=== PATIENT | female | born 1985 | race Caucasian/White ===

== ENCOUNTER 2024-04-11 16:36 | Emergency (ER) | payer BC, SELFPAY ==
[2024-04-11 16:55] VITALS: BP 138/89; PULSE 96; RESP 18; TEMP 37.3; O2SAT 99; BMI 29.9
--- NOTE | 2024-04-11 20:50 | ED_ITS ---
HPI - General Adult General Time Seen by Provider: 20:28 Date Seen: 04/11/24 Chief complaint: Headache/Migraine Stated complaint: Migraine 1 week, L eye infection Time Seen by Provider: 04/11/24 20:28 Source: patient and RN notes reviewed Mode of arrival: ambulatory Limitations: no limitations History of Present Illness HPI narrative: Patient is a 38-year-old female coming in with severe left-sided headache and lesions in her hair and forhead, swelling of her upper eyelid. She feels she has a left upper eyelid infection. She went to the eye doctor on Friday, was given steroid drops. She sent a picture to the eye doctor today or yesterday once the lesions developed, the eye doctor told her that it perhaps may be shingles. She went to urgent care on , ended up having CT imaging, was given antibiotics. She states that she did not have any the lesions. She started breaking out in painful lesions in her scalp and on her left forehead on Friday, yesterday. She believes she has a low-grade fever, her lymph nodes on the side of her face are inflamed. She was given antibiotics at urgent care. She has tried [id number] pain medicines, nothing is helping the pain. She has a severe headache on this left side of her head. She has tolerated oxycodone with her tonsillectomy before. Related Data Home Medications ?Medication ?Instructions ?Recorded ?Confirmed amlodipine 10 mg tablet 10 mg PO DAILY 02/19/23 02/19/23 venlafaxine 150 mg 150 mg PO DAILY 02/19/23 02/19/23 capsule,extended release 24 hr cefdinir 300 mg capsule 300 mg PO BID 04/11/24 04/11/24 lorazepam 0.5 mg tablet 0.5 mg PO DAILY PRN anxiety 04/11/24 04/11/24 metoprolol succinate 25 mg 25 mg PO DAILY 04/11/24 04/11/24 tablet,extended release 24 hr norethindrone 1.5 mg-ethinyl 1 tab PO DAILY 04/11/24 04/11/24 estradiol 30 mcg(21)/iron 75 mg(7) tablet (Mariann Fe 1.5/30 (28)) prednisolone acetate 1 % eye drp ophthalmic (eye) 04/11/24 drops,suspension Previous Rx's ?Medication ?Instructions ?Recorded gabapentin 100 mg capsule 100 mg PO QHS #10 caps 04/11/24 valacyclovir 1 gram tablet 1,000 mg PO TID #20 tabs 04/11/24 Allergies Allergy/AdvReac Type Severity Reaction Status Date / Time amoxicillin (From Augmentin) Allergy Verified 02/19/23 11:08 clavulanic acid (From Allergy Verified 02/19/23 11:08 Augmentin) Review of Systems Narrative: As per HPI. PFSH PFSH Surgical History Hx of tonsillectomy ?Z90.89 - Acquired absence of other organs (ICD-10) Exam Const: Vital Signs, click to edit/add: Vital Signs - 24 hr 04/11/24 16:55 Temperature 99.1 F Pulse Rate [Right Pulse Oximeter] 96 Respiratory Rate 18 Blood Pressure [Ri ght Upper Arm] 138/89 Pulse Oximetry 99 Oxygen Delivery Me thod Room Air This 38-year-old female is alert, interactive, no apparent distress. She has erythematous crusted lesions on her left forehead going up into her scalp, left upper eyelid is erythematous swollen. Pupils are equal round reactive, sclera clear come extra muscles intact. TMs canals normal. No lesions below the forehead. She does have some adenopathy along the left jawline by the ear. She is breathing easy on room air, CV regular rate and rhythm, no murmur. Documenting provider has reviewed patient's vital signs: yes Course Course ED Course: Discussed with patient that she definitely has shingles. We discussed the significant pain with this. She needs to be on Valtrex. Will give her a dose of 1000 mg Valtrex tonight as we do not have this in [facility]. She will be given 30 mg IM Toradol to attempt for some pain management, she did drive herself. Did review with her that I will certainly give her some oxycodone from [facility], will provide 8 tablets of 5 mg, 1 every 6 hours as needed. Will give her a prescription for gabapentin at bedtime, will have to get this filled tomorrow. We discussed the importance of following up with the eye doctor to ensure no ophthalmic involvement. She did have a prodrome all headache for about a week prior to her symptoms. We discussed that that can be very typical of shingles. Vital Signs Vital signs: Initial Vital Signs Temperature 99.1 F 04/11/24 16:55 Temperature Source Temporal Artery Scan 04/11/24 16:55 Pulse Rate 96 04/11/24 16:55 Pulse Rhythm Regular 04/11/24 16:55 Respiratory Rate 18 04/11/24 16:55 Blood Pressure 138/89 04/11/24 16:55 Blood Pressure Mean 105 04/11/24 16:55 Blood Pressure Position Sitting 04/11/24 16:55 Pulse Oximetry 99 04/11/24 16:55 Oxygen Delivery Method Room Air 04/11/24 16:55 Vital Signs Temperature 99.1 F 04/11/24 16:55 Pulse Rate 96 04/11/24 16:55 Respiratory Rate 18 04/11/24 16:55 Blood Pressure 138/89 04/11/24 16:55 Pulse Oximetry 99 04/11/24 16:55 Oxygen Delivery Method Room Air 04/11/24 16:55 Temperature 99.1 F 04/11/24 16:55 Pulse Rate 96 04/11/24 16:55 Respiratory Rate 18 04/11/24 16:55 Blood Pressure 138/89 04/11/24 16:55 Pulse Oximetry 99 04/11/24 16:55 Oxygen Delivery Method Room Air 04/11/24 16:55 Discharge Plan Discharge Clinical Impression: Shingles Qualifiers: Herpes zoster complications: without complications Qualified Code(s): B02.9 - Zoster without complications Patient Disposition: Home, Self-Care Condition: Stable Instructions: Shingles (ED) Additional Instructions: You can stop the antibiotic prescribed from urgent care as it is not going to help. Continue with the Valtrex a 1000 mg 3 times a day to complete 1 week. You should try to take your next dose as soon as possible in the morning. Have written for oxycodone, follow-up prescription instructions. Have provided a prescription of gabapentin 100 mg to be taken at bedtime to help with pain, can be sedating. Can continue with Tylenol and ibuprofen per bottle directions. You need to contact your eye doctor to be re-evaluated to ensure no eye involvement. Otherwise, schedule a follow-up appointment in clinic within the next week. You may need further pain management and do think it is important that you get this appointment. Activity Level: Activity as Tolerated Prescriptions: New valacyclovir 1 gram tablet 1,000 mg PO TID Qty: 20 0RF gabapentin 100 mg capsule 100 mg PO QHS Qty: 10 0RF No Action amlodipine 10 mg tablet 10 mg PO DAILY venlafaxine 150 mg capsule,extended release 24hr 150 mg PO DAILY norethindrone-e.estradiol-iron [Mariann Fe 1.5/30 (28)] 1.5 mg-30 mcg (21)/75 mg (7) tablet 1 tab PO DAILY prednisolone acetate 1 % drops,suspension ophthalmic (eye) lorazepam 0.5 mg tablet 0.5 mg PO DAILY PRN (Reason: anxiety) metoprolol succinate 25 mg tablet extended release 24 hr 25 mg PO DAILY cefdinir 300 mg capsule 300 mg PO BID Follow Up/Referrals: Kaur Manrique DO [Primary Care Provider] - Stand Alone Forms: [facility] Info Instructions
[2024-04-11] MEDS: KETOROLAC 30 MG/ML inj IM (21:39)
[2024-04-11] MEDS: VALACYCLOVIR HCL 500 MG TABLET 1000 MG PO (21:41)
== END 2024-04-11 21:52 | disposition home or self-care (01) ==
LOC: ED 21:12
PROVIDERS: Emergency Provider Family Medicine; PCP Family Medicine
DX: R51.9 Headache, unspecified (principal); B02.9 Zoster without complications
CPT/HCPCS: 96372; 99283; A9270; J1885

== ENCOUNTER 2025-03-09 20:49 | Outpatient (CLI) | payer BC, SELFPAY | END 2025-03-09 20:50 | disposition home or self-care (01) | LOC: SLEEP 20:50 | PROVIDERS: PCP Family Medicine; Visit Provider Internal Medicine | DX: G47.9 Sleep disorder, unspecified (principal); G47.10 Hypersomnia, unspecified | CPT/HCPCS: 95810 ==